=== PATIENT | female | born 1955 | race Native Hawaiian/Other Pacific Islander ===

== ENCOUNTER 2016-10-01 15:25 | Outpatient (CLI) | payer BC ==
[~2016-10-01 15:25] MED LIST: ACTIVELLA1 TAB PO; ALLEGRA ALRG180 M1 PO; AYGESTIN5 MG PO; CETI10TA PO; CLARITIN10 MG PO; CLEMASTINE2.68 MG PO; ESTR1TAB13 PO; FLUT0.05 NAS; LEVO0.08 PO; MEDROL DOSEPAK4 MG OR; METRONIDAZOL500 MG OR; OMEPRAZOLE20 M1 OR; PREVACID30 MG PO; PROBIOTI1 PO; VITAMIN D400 UNIT OR; Z-PAK PO
== END 2016-10-01 16:25 | disposition home or self-care (01) ==
LOC: CT 15:25
DX: J32.0 Chronic maxillary sinusitis (principal)

== ENCOUNTER 2018-05-17 13:39 | Outpatient (CLI) | payer OTHER | END 2018-05-17 21:21 | disposition home or self-care (01) | LOC: RAD 13:39 | DX: Z13.820 Encounter for screening for osteoporosis (principal) ==

== ENCOUNTER 2018-08-22 08:00 | Outpatient (CLI) | payer OTHER ==
[2018-08-22 08:25] LABS: PLATELET COUNT 182 K/uL (152-353)
[2018-08-22 08:42] LABS: POTASSIUM 4.4 mmol/L (3.6-5.2)
== END 2018-08-22 19:38 | disposition home or self-care (01) ==
LOC: LABW 08:00
PROVIDERS: Internal Medicine
DX: E03.9 Hypothyroidism, unspecified (principal); E78.00 Pure hypercholesterolemia, unspecified
CPT/HCPCS: 36415; 80053; 80061; 81000; 84439; 84443; 85027

== ENCOUNTER 2018-09-18 09:25 | Outpatient (CLI) | payer OTHER | END 2018-09-18 21:50 | disposition home or self-care (01) | LOC: RESP 09:25 | DX: R00.2 Palpitations (principal) | CPT/HCPCS: 93225 ==

== ENCOUNTER 2018-11-14 11:09 | Outpatient (CLI) | payer OTHER ==
[~2018-11-14] VITALS: Ht 170.2 cm; Wt 76.7 kg
[2018-11-14 11:15] VITALS: BP 140/73; TEMP 98.7
[2018-11-14 12:27] LABS: PLATELET COUNT 219 K/uL (152-353)
[2018-11-14 12:34] LABS: POTASSIUM 3.8 mmol/L (3.6-5.2)
== END 2018-11-14 19:08 | disposition home or self-care (01) ==
LOC: INF 11:09
PROVIDERS: Internal Medicine
DX: E86.0 Dehydration (principal); R11.0 Nausea
CPT/HCPCS: 80053; 83735; 85027; 96360; 96361

== ENCOUNTER 2018-12-07 09:39 | Outpatient (CLI) | payer OTHER ==
[2018-12-07 10:13] LABS: PLATELET COUNT 224 K/uL (152-353)
[2018-12-07 10:29] LABS: POTASSIUM 4.1 mmol/L (3.6-5.2)
== END 2018-12-07 20:47 | disposition home or self-care (01) ==
LOC: LABW 09:39
PROVIDERS: Internal Medicine Gastroenterology
DX: K92.1 Melena (principal); D64.89 Other specified anemias
CPT/HCPCS: 36415; 80053; 85027

== ENCOUNTER 2019-02-18 15:37 | Outpatient (CLI) | payer OTHER | END 2019-02-18 23:45 | disposition home or self-care (01) | LOC: LAB 15:37 | DX: R04.2 Hemoptysis (principal) | CPT/HCPCS: 87070; 87077; 87186; 87205 ==

== ENCOUNTER 2019-04-26 08:06 | Outpatient (CLI) | payer OTHER ==
[2019-04-26 08:29] LABS: PLATELET COUNT 196 K/uL (152-353)
[2019-04-26 09:07] LABS: POTASSIUM 4.1 mmol/L (3.6-5.2)
== END 2019-04-26 20:35 | disposition home or self-care (01) ==
LOC: LABW 08:06
PROVIDERS: Internal Medicine
DX: Z00.00 Encounter for general adult medical examination without abnormal findings (principal); Z79.899 Other long term (current) drug therapy; K21.9 Gastro-esophageal reflux disease without esophagitis; E03.8 Other specified hypothyroidism
CPT/HCPCS: 36415; 80053; 80061; 81000; 84439; 84443; 85027

== ENCOUNTER 2020-04-03 17:54 | Outpatient (CLI) | payer OTHER | END 2020-04-03 23:43 | disposition home or self-care (01) | LOC: LAB 17:54 | DX: N39.0 Urinary tract infection, site not specified (principal) | CPT/HCPCS: 81000; 87077; 87086; 87088; 87186 ==

== ENCOUNTER 2020-06-03 12:23 | Outpatient (CLI) | payer OTHER ==
[2020-06-03 13:07] LABS: PLATELET COUNT 170 K/uL (152-353)
[2020-06-03 13:29] LABS: POTASSIUM 4.2 mmol/L (3.6-5.2)
== END 2020-06-03 22:39 | disposition home or self-care (01) ==
LOC: LAB 12:23
PROVIDERS: ATTEND Internal Medicine
DX: Z00.00 Encounter for general adult medical examination without abnormal findings (principal); Z13.820 Encounter for screening for osteoporosis; E55.9 Vitamin D deficiency, unspecified; Z79.899 Other long term (current) drug therapy
CPT/HCPCS: 80053; 80061; 81000; 82306; 84439; 84443; 85027

== ENCOUNTER 2020-09-30 09:19 | Outpatient (CLI) | payer OTHER | END 2020-09-30 20:43 | disposition home or self-care (01) | LOC: RAD 09:19 | PROVIDERS: ATTEND Internal Medicine | DX: M54.2 Cervicalgia (principal) ==

== ENCOUNTER 2020-11-18 09:43 | Outpatient (CLI) | payer OTHER | END 2020-11-18 19:46 | disposition home or self-care (01) | LOC: LAB 09:43 | PROVIDERS: ATTEND Internal Medicine | DX: R30.0 Dysuria (principal) | CPT/HCPCS: 81000; 87077; 87086; 87088; 87186 ==

== ENCOUNTER 2021-06-04 13:28 | Outpatient (CLI) | payer OTHER ==
[2021-06-04 13:56] LABS: PLATELET COUNT 174 K/uL (152-353)
[2021-06-04 14:22] LABS: POTASSIUM 4.3 mmol/L (3.6-5.2)
== END 2021-06-04 19:23 | disposition home or self-care (01) ==
LOC: LAB 13:28
PROVIDERS: ATTEND Internal Medicine
DX: Z00.00 Encounter for general adult medical examination without abnormal findings (principal); Z13.820 Encounter for screening for osteoporosis; E55.9 Vitamin D deficiency, unspecified; Z79.899 Other long term (current) drug therapy
CPT/HCPCS: 80053; 80061; 81000; 82306; 84439; 84443; 85027

== ENCOUNTER 2021-09-01 09:20 | Outpatient (CLI) | payer OTHER | END 2021-09-01 18:51 | disposition home or self-care (01) | LOC: CT 09:20 | PROVIDERS: ATTEND Internal Medicine | DX: R09.1 Pleurisy (principal) ==

== ENCOUNTER 2021-12-17 09:44 | Outpatient (CLI) | payer OTHER ==
[~2021-12-17] VITALS: Ht 170.2 cm; Wt 74.4 kg
== END 2021-12-17 18:56 | disposition home or self-care (01) ==
LOC: INF 09:44
PROVIDERS: ATTEND Internal Medicine
DX: Z23 Encounter for immunization (principal); U07.1 COVID-19
CPT/HCPCS: 96374; Q0222

== ENCOUNTER 2022-06-07 14:03 | Outpatient (CLI) | payer OTHER ==
[2022-06-07 14:23] LABS: PLATELET COUNT 184 K/uL (152-353)
[2022-06-07 14:41] LABS: POTASSIUM 4.3 mmol/L (3.6-5.2)
== END 2022-06-07 20:31 | disposition home or self-care (01) ==
LOC: LAB 14:03
PROVIDERS: ATTEND Internal Medicine
DX: Z00.00 Encounter for general adult medical examination without abnormal findings (principal); Z79.899 Other long term (current) drug therapy; Z13.820 Encounter for screening for osteoporosis; E55.9 Vitamin D deficiency, unspecified
CPT/HCPCS: 80053; 80061; 81002; 82306; 84439; 84443; 85027

== ENCOUNTER 2022-06-16 07:51 | Outpatient (CLI) | payer OTHER | END 2022-06-16 19:33 | disposition home or self-care (01) | LOC: RAD 07:51 | PROVIDERS: ATTEND Internal Medicine | DX: Z13.820 Encounter for screening for osteoporosis (principal); N95.8 Other specified menopausal and perimenopausal disorders ==

== ENCOUNTER 2022-10-01 11:57 | Outpatient (CLI) | payer OTHER ==
[2022-10-01 12:52] LABS: PLATELET COUNT 203 K/uL (152-353)
[2022-10-01 14:16] LABS: POTASSIUM 4.1 mmol/L (3.6-5.2)
== END 2022-10-01 19:17 | disposition home or self-care (01) ==
LOC: LAB 11:57
PROVIDERS: ATTEND Internal Medicine
DX: I10 Essential (primary) hypertension (principal)
CPT/HCPCS: 80053; 80061; 81000; 84439; 84443; 85027